=== PATIENT | female | born 2005 | race Caucasian/White ===

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

== ENCOUNTER 2023-08-06 00:26 | Emergency (ER) | payer MEDICAID, OTHER ==
[2023-08-06] MEDS ORDERED: HYDROcodone/Acetaminophen 5/325 mg Tablet ONE (00:47)
[2023-08-06] MEDS ORDERED: Penicillin V Potassium 250 MG TAB ONE (00:47)
== END 2023-08-06 00:54 | disposition home or self-care (01) ==
LOC: BURERS 00:26
DX: K02.9 Dental caries, unspecified (principal); I10 Essential (primary) hypertension; R00.0 Tachycardia, unspecified; Z55.6 Problems related to health literacy
CPT/HCPCS: 99282